=== PATIENT | male | born 1980 | race Caucasian/White ===

== ENCOUNTER 2020-04-04 14:25 | Outpatient (CLI) | payer OTHER, SELFPAY ==
--- NOTE | ~2020-04-04 | CT_ITS ---
EXAMINATION: CT abdomen pelvis w con EXAM DATE: 04/04/2020 16:40 INDICATION: Central abdominal pain. TECHNIQUE: Spiral CT of the abdomen and pelvis was performed following intravenous injection of 100 m L Omnipaque 350. Axial, coronal and sagittal images were reviewed. The dose-length product (DLP) fo r this examination was 594.87 mGy-cm. The exposure was tailored according to patient size (auto mA e xposure control), and iterative reconstruction (ASIR) was used as additional dose reduction technique . There is no prior study for comparison. FINDINGS: The liver, spleen, adrenal glands and pancreas are unremarkable. Gallbladder is unremarkab le. No biliary obstruction. Portal and splenic veins are patent. Kidneys enhance symmetrically. T here is no hydronephrosis. The prostate is unremarkable. The bladder is unremarkable. There is no retroperitoneal or pelvic lymphadenopathy. There is mild scattered arteriosclerotic disease. Tiny umbilical fat-containing hernia. The appendix is not positively visualized. There is no pericecal inflammatory change to suggest appe ndicitis. The stomach and small bowel are unremarkable. There is expected amount of colonic stool. No free intraperitoneal gas. The heart is normal in size. There are no pericardial or pleural e ffusions. Left basilar granulomata. There are no osteoblastic or osteolytic lesions identified. IMPRESSION: No acute intra-abdominal findings. Reviewed, dictated and finalized at location B.
[2020-04-04 14:47] LABS: Basophils Absolute Auto 0.1 K/mm3 (0.0-0.1); Eosinophils Absolute Auto 0.2 K/mm3 (0-0.3); Eosinophils Percent Auto 2.7 % (0-4.4); Hematocrit 43.8 % (42.0-52.0); Hemoglobin 14.6 g/dL (14.0-18.0); Immature Granulocyte Absolute 0.05 K/mm3 (0.00-0.031); Immature Granulocyte Percent A 0.6 % (0-0.5); Lymphocytes Absolute Auto 2.58 K/mm3 (0.9-3.2); Lymphocytes Percent Auto 32.7 % (18.3-44.2); Mean Corpuscular HGB Conc 33.3 g/dl (32-36); Mean Corpuscular Hemoglobin 27.9 pg (26-34); Mean Corpuscular Volume 83.7 fl (80-100); Monocytes Absolute Auto 0.6 K/mm3 (0.1-0.6); Monocytes Percent Auto 8.1 % (2.6-8.5); Neutrophils Absolute Auto 4.3 K/mm3 (1.3-6.7); Neutrophils Percent Auto 54.9 % (45.5-73.1); Platelet Count Result 272 k/mm3 (150-375); Red Blood Count 5.23 M/mm3 (4.6-6.20); Red Cell Distribution Width 13.2 % (11.5-14.5); White Blood Count 7.9 K/mm3 (4.5-10.0)
[2020-04-04 14:58] LABS: Blood Urea Nitrogen 12 mg/dL (9-20); Calcium 9.4 mg/dL (8.4-10.2); Carbon Dioxide 29 mmol/L (22-30); Chloride 103 mmol/L (98-107); Estimated Glomerular Filt Rate > 60; Glucose 99 mg/dL (75-110); Potassium 3.7 mmol/L (3.4-5.0); Sodium 138 mmol/L (137-145)
== END 2020-04-04 14:26 | disposition home or self-care (01) ==
PROVIDERS: PCP Family Medicine; Visit Provider Nurse Practitioner Family
DX: F41.9 Anxiety disorder, unspecified (principal); K59.00 Constipation, unspecified; R10.813 Right lower quadrant abdominal tenderness; R10.816 Epigastric abdominal tenderness
CPT/HCPCS: 36415; 74177; 80048; 84443; 85025; Q9967

== ENCOUNTER 2020-12-20 08:30 | Outpatient (CLI) | payer OTHER, SELFPAY ==
--- NOTE | 2020-12-20 | ECG_ITS ---
Measurements Intervals [place] Rate: 49 P: 14 MA: 133 QRS: -8 QRSD: 109 T: 3 QT: 424 QTc: 384 Interpretive Statements SINUS BRADYCARDIA BORDERLINE ST-T WAVE ABNORMALITY- INFERIOR LEADS ABNORMAL ECG Electronically Signed On 12-20-2020 9:45:18 CDT by Lorenzo Luna D.O.
--- NOTE | ~2020-12-20 | US_ITS ---
EXAMINATION: US abdomen complete EXAM DATE: 12/20/2020 09:15 INDICATION: R10.9 - Unspecified abdominal pain. TECHNIQUE: Multiple grayscale and Doppler images of the complete abdomen were obtained (by a technolo gist who performed the scan) and subsequently reviewed. There is no prior study for comparison. FINDINGS: The abdominal aorta is normal in caliber. Visualized portion IVC is patent. The pancreatic head a nd body are normal in appearance. The pancreatic tail is not visualized. There is echogenic liver parenchyma, hepatic steatosis. There are no focal liver lesions identified. There is no evidence of intrahepatic biliary duct dilation. Portal venous flow was seen in the he patopedal, normal direction and has normal Doppler waveform. Common bile duct measures 5 mm, which is normal. The gallbladder wall is normal in thickness, with ex pected amount of distention. No sonographic evidence of pericholecystic fluid. There is no cholelit hiases. Technologist performing exam reports patient did not demonstrate sonographic Iverson's sign. Please note that this sign is less reliable in patients who have received pain medication. Right kidney: There is normal contour and echogenicity. It measures 9.8 x 5.2 x 5.0 centimeters. T here are no focal renal lesions identified. There is no hydronephrosis. Left kidney: There is normal contour and echogenicity. It measures 11.6 x 5.0 x 5.6 centimeters. T here are no focal renal lesions identified. There is no hydronephrosis. The spleen measures 12.3 centimeters and is morphologically normal. IMPRESSION: 1. Hepatic steatosis. 2. Unremarkable gallbladder. Reviewed, dictated and finalized at location A.
== END 2020-12-20 08:31 | disposition home or self-care (01) ==
PROVIDERS: PCP Family Medicine; Visit Provider Nurse Practitioner Family
DX: R10.9 Unspecified abdominal pain (principal); R06.02 Shortness of breath; K76.0 Fatty (change of) liver, not elsewhere classified; R94.31 Abnormal electrocardiogram [ECG] [EKG]
CPT/HCPCS: 76700; 93005

== ENCOUNTER 2021-01-12 09:35 | Outpatient (CLI) | payer OTHER, SELFPAY ==
--- NOTE | 2021-01-12 09:40 | ECHO_ITS ---
Patient Info Name: Francesco Decker Age: 40 years : 1980 Gender: Male Ht: 70 in Wt: 212 lbs BSA: 2.20 m2 HR: 78 bpm BP: 128 / 76 mmHg Heart Rhythm: Sinus Rhythm Technical Quality: Good Exam Date: 01/12/2021 9:49 AM Exam Location: [facility] Patient Status: Outpatient Admit Date: 01/12/2021 Staff Ordering Physician: Elizabeth Lane NP Cashier Checker: Breanna Quijano RDCS Attending Provider: Elizabeth Lane NP Referring Physician: Domingo PARR; Exam Type: CA echo doppler color flow Study Info Indications - abnormal ekg Complete two-dimensional, color flow and Doppler transthoracic echocardiogram is performed. Summary 1. Complete two-dimensional, color flow and Doppler transthoracic echocardiogram is performed. 2. Left ventricular systolic function is normal, estimated at 65-70%. 3. There is no increased left ventricular wall thickness. 4. The left ventricular diastolic function is normal. 5. Global longitudinal strain is normal at -19 %. 6. There is trace tricuspid valve regurgitation. 7. No pulmonary hypertension, estimated pulmonary arterial systolic pressure is 32 mmHg. 8. There is no mitral valve regurgitation. 9. There is no aortic valve stenosis. Left Ventricle Left ventricular chamber dimension is normal. Left ventricular systolic function is normal, estimated at 65-70%. There is no increased left ventricular wall thickness. The left ventricular diastolic function is normal. Global longitudinal strain is normal at -19 %. Right Ventricle Right ventricular chamber dimension is normal. Right ventricular systolic function is normal. Left Atria Left atrial chamber dimension is normal. Right Atria Right atrial chamber dimension is normal. Aortic Valve The aortic valve is trileaflet. There is no aortic valve stenosis. There is no aortic valve regurgitation. Pulmonic Valve The pulmonic valve is normal. There is trace pulmonic regurgitation. Mitral Valve The mitral valve has normal leaflets. There is no mitral valve regurgitation. Tricuspid Valve The tricuspid valve leaflets are normal. There is trace tricuspid valve regurgitation. No pulmonary hypertension, estimated pulmonary arterial systolic pressure is 32 mmHg. Pericardium/Pleural The pericardium appears normal. There is trivial pericardial effusion. Inferior Vena Cava Normal inferior vena cava with >50% collapse upon inspiration consistent with normal right atrial pressure, 5 mmHg. Aorta The aortic root size at the sinus of Valsalva is normal. Left Ventricular Outflow Tract Name Value Normal LVOT 2D LVOT Diameter 2.0 cm LVOT Doppler LVOT Peak Gradient 5 mmHg LVOT Mean Gradient 3 mmHg LVOT VTI 26 cm LVOT VTI/AV VTI Ratio 0.9 LVOT Stroke Volume 85 ml LVOT CO 16.0 l/min LVOT CI 7.3 l/min/m2 Pulmonic Valve
--- NOTE | 2021-01-12 09:40 | EST_ITS ---
Patient Info Name: Francesco Decker Age: 40 years : 1980 Gender: Male Ht: 70 in Wt: 212 lbs BSA: 2.20 m2 Exam Date: 01/12/2021 10:26 AM Exam Location: [facility] Patient Status: Outpatient Admit Date: 01/12/2021 Staff Ordering Physician: Elizabeth Lane NP Attending Provider: Elizabeth Lane NP Exercise Technologist: Huong Coker CT Exercise Physician: Lorenzo Luna DO Exam Type: CA stress test treadmill Study Info An exercise stress test was performed. Summary 1. 1. Negative [facility]acio exercise stress test for ischemic ST changes by ECG criteria. 2. 2. Good functional capacity, achieving 12 METs of workload. 3. 3. Appropriate HR response to exercise. 4. 4. Appropriate HR recovery at 1 minute post exercise. 5. 5. No imaging with stress testing. 6. 6. Patient informed of the above results. Protocol: [facility] Stress ECG Details Stage: REST Duration (min): 1 min : 44 sec Speed (mph): 0.0 Grade (%): 0 HR (bpm): 55 SBP (mmHg): 125 DBP (mmHg): 63 METS: --- Stage: REST Duration (min): 7 min : 7 sec Speed (mph): 0.0 Grade (%): 0 HR (bpm): 62 SBP (mmHg): 125 DBP (mmHg): 63 METS: --- Stage: STAGE 1 Duration (min): 1 min : 0 sec Speed (mph): 1.7 Grade (%): 10 HR (bpm): 96 SBP (mmHg): 125 DBP (mmHg): 63 METS: --- Stage: STAGE 1 Duration (min): 2 min : 0 sec Speed (mph): 1.7 Grade (%): 10 HR (bpm): 104 SBP (mmHg): 125 DBP (mmHg): 63 METS: --- Stage: STAGE 1 Duration (min): 3 min : 0 sec Speed (mph): 1.7 Grade (%): 10 HR (bpm): 103 SBP (mmHg): 160 DBP (mmHg): 69 METS: --- Stage: STAGE 2 Duration (min): 1 min : 0 sec Speed (mph): 2.5 Grade (%): 12 HR (bpm): 114 SBP (mmHg): 160 DBP (mmHg): 69 METS: --- Stage: STAGE 2 Duration (min): 2 min : 0 sec Speed (mph): 2.5 Grade (%): 12 HR (bpm): 122 SBP (mmHg): 176 DBP (mmHg): 75 METS: --- Stage: STAGE 2 Duration (min): 3 min : 0 sec Speed (mph): 2.5 Grade (%): 12 HR (bpm): 129 SBP (mmHg): 176 DBP (mmHg): 75 METS: --- Stage: STAGE 3 Duration (min): 1 min : 0 sec Speed (mph): 3.4 Grade (%): 14 HR (bpm): 145 SBP (mmHg): 167 DBP (mmHg): 74 METS: --- Stage: STAGE 3 Duration (min): 2 min : 0 sec Speed (mph): 3.4 Grade (%): 14 HR (bpm): 155 SBP (mmHg): 167 DBP (mmHg): 74 METS: --- Stage: STAGE 3 Duration (min): 3 min : 0 sec Speed (mph): 3.4 Grade (%): 14 HR (bpm): 161 SBP (mmHg): 191 DBP (mmHg): 81 METS: --- Stage: STAGE 4 Duration (min): 1 min : 0 sec Speed (mph): 4.2 Grade (%): 16 HR (bpm): 172 SBP (mmHg): 191 DBP (mmHg): 81 METS: --- Stage: STAGE 4 Duration (min): 1 min : 0 sec Speed (mph): 4.2 Grade (%): 16 HR (bpm): 172 SBP (mm
== END 2021-01-12 09:36 | disposition home or self-care (01) ==
PROVIDERS: PCP Family Medicine; Visit Provider Nurse Practitioner Family
DX: R94.31 Abnormal electrocardiogram [ECG] [EKG] (principal); R06.02 Shortness of breath
CPT/HCPCS: 93017; 93306

== ENCOUNTER 2023-02-21 14:03 | Emergency (ER) | payer OTHER, SELFPAY ==
[2023-02-21] VITALS (21 sets, daily range): BP systolic 118–156; BP diastolic 76–92; PULSE 55–96; RESP 13–22; TEMP 36.8; O2SAT 93–99
--- NOTE | ~2023-02-21 | XR_ITS ---
EXAMINATION: XR chest 2V DATE: 02/21/2023 14:45 INDICATION: Chest pain. Atrial fibrillation. TECHNIQUE: PA and lateral views of the chest were obtained. COMPARISON: Chest radiograph dated 07/14/2019 FINDINGS: Calcified nodule at the lateral left lower lung zone consistent with old granulomatous disease. No ot her airspace opacities, pulmonary edema, pleural effusion or pneumothorax. The cardiomediastinal silh ouette is normal. Left parasternal subcutaneous implantable quality assurance monitor body. IMPRESSION: 1. No acute cardiopulmonary disease. Reviewed, dictated and finalized at location A.
--- NOTE | 2023-02-21 14:04 | ECG_ITS ---
Measurements Intervals [place] Rate: 84 P: 34 [place]: 145 QRS: -12 QRSD: 106 T: 20 QT: 348 QTc: 414 Interpretive Statements SINUS RHYTHM WITH SINUS ARRHYTHMIA NORMAL ECG COMPARED TO ECG 12/20/2020 09:17:09 SINUS RHYTHM NOW PRESENT SINUS ARRHYTHMIA NOW PRESENT Electronically Signed On 02-21-2023 14:45:11 CDT by Lorenzo Luna D.O.
[2023-02-21 14:29] LABS: Basophils Absolute Auto 0.1 K/mm3 (0.0-0.1); Eosinophils Absolute Auto 0.1 K/mm3 (0-0.3); Eosinophils Percent Auto 1.7 % (0-4.4); Hematocrit 42.5 % (42.0-52.0); Hemoglobin 14.3 g/dL (14.0-18.0); Immature Granulocyte Absolute 0.04 K/mm3 (0.00-0.031); Immature Granulocyte Percent A 0.5 % (0-0.5); Lymphocytes Absolute Auto 1.78 K/mm3 (0.9-3.2); Lymphocytes Percent Auto 22.2 % (18.3-44.2); Mean Corpuscular HGB Conc 33.6 g/dl (32-36); Mean Corpuscular Hemoglobin 27.8 pg (26-34); Mean Corpuscular Volume 82.5 fl (80-100); Mean Platelet Volume 8.8 fl (7.4-10.4); Monocytes Absolute Auto 0.5 K/mm3 (0.1-0.6); Monocytes Percent Auto 6.5 % (2.6-8.5); Neutrophils Absolute Auto 5.5 K/mm3 (1.3-6.7); Neutrophils Percent Auto 68.1 % (45.5-73.1); Platelet Count Result 310 k/mm3 (150-375); Red Blood Count 5.15 M/mm3 (4.6-6.20); Red Cell Distribution Width 13.5 % (11.5-14.5)
[2023-02-21 14:38] LABS: Alanine Aminotransferase 43 U/L (6-50); Albumin Level 4.5 g/dL (3.5-5.1); Alkaline Phosphatase 91 U/L (38-126); Anion Gap 7 mmol/L (8-16); Aspartate Amino Transferase 35 U/L (17-59); Bilirubin,Total 0.5 mg/dL (0.2-1.3); Blood Urea Nitrogen 13 mg/dL (9-20); Calcium 8.9 mg/dL (8.4-10.2); Carbon Dioxide 29 mmol/L (22-30); Chloride 103 mmol/L (98-107); Estimated Glomerular Filt Rate > 60; Glucose 122 mg/dL (65-110); Lipase 103 U/L (23-300); Sodium 139 mmol/L (137-145)
[2023-02-21 14:44] LABS: INR 0.9; Prothrombin Time 12.4 Seconds (11.1-14.7)
[2023-02-21 14:45] LABS: Partial Thromboplastin Time 26.2 SECONDS (22.3-36.8)
[2023-02-21 14:51] LABS: Troponin I < 0.012 ng/mL (0.000-0.034)
--- NOTE | 2023-02-21 15:02 | ED.ARRPALP ---
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 Patient states that he is following with electrophysiology at [facility] for his heart rate. States that he is intermittently severely bradycardic and then he becomes very tachycardic. Patient states that he is scheduled to have a pacemaker placed in a few weeks. States that this morning he was sitting in his office and he started feeling palpitations. He denies any chest pain or shortness of breath. States that he did feel lightheaded. He checked his watch and his heart rate was in the 140s. He states that normally when he becomes tachycardic it only lasts for a brief period. States that today it continued so he came in for evaluation. States that it seemed to resolve by the time he arrived. States that currently he feels well. His blue leather setter is Dr. Reyna at [facility]. Related Data Home Medications Medication Instructions Recorded Confirmed atorvastatin 10 mg tablet 10 mg PO DAILY 08/24/19 10/15/22 buspirone 5 mg tablet 10 mg PO BID 12/25/22 Allergies Allergy/AdvReac Type Severity Reaction Status Date / Time No Known Allergies Allergy Verified 02/21/23 14:29 Review of Systems Review of Systems: All systems reviewed & are unremarkable except as noted in HPI and below PMFSH Family History Family History Father Family history of coronary artery disease Social History Social History Smoking status: Former smoker (vape, trying to cut back and quit) Tobacco type: cigarettes Additional smoking assessment comments: pt vapes Alcohol intake: never Substance use: never Substance use type: does not use Living arrangements: with family Occupation/Education: occupation Gender identity (if verbalized by the patient): Male Sexual Orientation (if Verbalized by the Patient): Lesbian, Handley, or Homosexual Exam Narrative: GENERAL: Well-appearing, well-nourished, and in no acute distress. HEAD: Normocephalic, atraumatic. EYES: PERRLA and EOMI. ENT: Nares clear, no rhinorrhea or epistaxis. Mucous membranes moist. NECK: Supple. CHEST: Clear to auscultation. No respiratory distress. HEART: Regular rate and rhythm. No murmur heard. Normal peripheral pulses. ABDOMEN: Soft, nontender, nondistended EXTREMITIES: Normal range of motion. No edema. SKIN: Warm, dry, no rash. NEURO: No focal deficits. Alert and oriented x3. PSYCH: Normal mood and affect. Course Vital Signs Vital signs: Vital Signs Temperature 98.2 F 02/21/23 14:05 Pulse Rate 96 02/21/23 14:05 Respiratory Rate 18 02/21/23 14:05 Blood Pressure 156/85 H 02/21/23 14:05 Pulse Oximetry 99 02/21/23 14:05 Oxygen Delivery Room Air 02/21/23 14:05 Temperature 98.2 F 02/21/23 14:05 Pulse Rate 55 L 02/21/23 17:32 Respiratory Rate 13 02/21/23 17:32 Blood Pressure 123/78 02/21/23 17:15 Pulse Oximetry 98 02/21/23 17:32 Oxygen Delivery Room Air 02/21/23 14:05 MDM - Arrhythmia/Palpitations MDM Narrative Medical decision making narrative: Patient is a 42-year-old male presenting with palpitations. Patient is a bit hypertensive, otherwise vitals are within normal limits. EKG per my interpretation shows normal sinus rhythm, normal axis and intervals, sinus arrhythmia, no ST elevations or depressions. Blood work is unremarkable. Electrolytes are normal. Renal function is at baseline. Troponin is undetectable. Chest x-ray shows no acute abnormalities. Multiple calls out to his sequins stringer at [facility]. On reevaluation, the patient feels very well. He would like to go. 3-hour troponin is
[2023-02-21 17:43] LABS: Troponin I < 0.012 ng/mL (0.000-0.034)
== END 2023-02-21 18:09 | disposition home or self-care (01) ==
PROVIDERS: Emergency Medicine; Emergency Provider Emergency Medicine; PCP Family Medicine
DX: R00.2 Palpitations (principal); I49.9 Cardiac arrhythmia, unspecified; F17.290 Nicotine dependence, other tobacco product, uncomplicated
CPT/HCPCS: 36415; 71046; 80053; 83690; 83735; 84484; 85025; 85610; 85730; 93005; 99284